=== PATIENT | male | born 1985 | race Caucasian/White ===

== ENCOUNTER 2023-10-23 17:42 | Emergency (ER) | payer SELFPAY ==
[2023-10-23 17:43] VITALS: BP 156/106; PULSE 120; RESP 20; TEMP 36.1; O2SAT 94
[2023-10-23 19:20] VITALS: BMI 38.6
[2023-10-23 19:42] VITALS: BP 145/96; PULSE 98; RESP 20; O2SAT 98
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
[2023-10-23] MEDS: 0.9% Normal Saline (500mL Bag) 500 ML 999 ML IV (20:21)
[2023-10-23] MEDS: fentaNYL 100 MCG/2 ML Ampul 50 MCG IV (20:21)
[2023-10-23 20:32] LABS: Absolute Lymphocyte Count 2.49 X10^3/uL (0.83-4.51); Basophil% 0.7 % (0-1); Eosinophil# 0.09 X10^3/uL; Eosinophils% 0.6 % (0-5); Hematocrit 40.1 % (40-54); Hemoglobin 13.6 g/dL (13.0-16.5); Lymphocyte # 2.49 X10^3/ul (0.83-4.51); Lymphocyte % 16.8 % (19-41); Mean Corp Hgb Conc 33.9 g/dL (32-36); Mean Corpuscular Volume 82.7 fL (80-94); Mean Platelet Vol. 10.9 fl (6.2-12.0); Monocyte# 1.11 X10^3/uL; Monocyte% 7.5 % (0-10); NRBC Flagged by Analyzer 0 % (0-5); Platelet Count 227 K/mm3 (150-450); RBC Distribution Width CV 12.9 % (11.6-14.6); RBC Distribution Width SD 38.9 fl (35.1-43.9); Red Blood Count 4.85 M/mm3 (4.6-6.2); White Blood Count 14.9 K/mm3 (4.4-11.0)
[2023-10-23 20:46] LABS: Anion Gap 5 (5-15); BUN 17 mg/dL (7-18); BUN/Creat Ratio 17.5 RATIO (10-20); Chloride 110 mmol/L (98-107); Creatinine, Serum 0.97 mg/dL (0.70-1.30); EST Glomerular Filtration Rate 91 mL/min (>60); Est Glom Filt Rate - Afr Amer 110 mL/min (>60); Estimated Creatinine Clearance 118.12 ml/min; Glucose 117 mg/dL (74-106); Sodium Level 140 mmol/L (136-145)
[2023-10-23 21:00] VITALS: BP 166/95; PULSE 68; RESP 18; O2SAT 100
[2023-10-23 22:49] VITALS: BP 140/65; PULSE 69; RESP 14; TEMP 36.8; O2SAT 99
== END 2023-10-23 22:51 | disposition home or self-care (01) ==
PROVIDERS: Emergency Provider Emergency Medicine; PCP Family Medicine; Visit Provider Emergency Medicine
DX: S32.038A Other fracture of third lumbar vertebra, initial encounter for closed fracture (principal); S32.048A Other fracture of fourth lumbar vertebra, initial encounter for closed fracture; S30.0XXA Contusion of lower back and pelvis, initial encounter; V80.42XA Occupant of animal-drawn vehicle injured in collision with car, pick-up truck, van, heavy transport vehicle or bus, initial encounter; Y93.89 Activity, other specified; Y99.8 Other external cause status; Y92.410 Unspecified street and highway as the place of occurrence of the external cause; Z87.891 Personal history of nicotine dependence
CPT/HCPCS: 74177; 80048; 85025; 96361; 96374; 99283; J7030; Q9967; A4216